=== PATIENT | female | born 1950 | race Caucasian/White ===

== ENCOUNTER → 2016-12-30 | Day surgery (SDC) | payer OTHER ==
[~2016-12-30] MED LIST: ALPR0.5T6 PO; ATEN100T PO; ESCI10TA PO; FENO134C PO; FENTANYL PF 100 MCG/2 ML VIAL. IV PRN; FLUT1DIS IH; HYDR12.53 PO; HYDR200T PO; HYDROMORPHONE 2 MG/ML VIAL. IV PRN; IV RINGERS,LACTATED 1000ML 1,000 ML IV SCH; LEVO25TA4 PO; LEVO5TAB20 PO; LIDOCAINE 1% 1 ML SYRINGE. ID PRN; LIDOCAINE 2% PF Vial for OR 5 ML VIAL. ONE; MELO-150 PO; MONT10TA6 PO; MORPHINE SULFATE 2 MG/ML DISP.SYRIN. IV PRN; OMEP20CA9 PO; POLY17PO5 PO; POT25TAB PO; PROCHLORPERAZINE 10 MG/2 ML VIAL. IV PRN; PROPOFOL 20 ML IV ONE; PSYL660P18 PO
[2016-12-30 08:31] VITALS: BP 143/55
--- NOTE | 2016-12-30 22:26 | CONS ---
DATE OF CONSULTATION: 12/30/2016 REFERRING: ALIVIA Jeter. HISTORY OF PRESENT ILLNESS: This is a 66-year-old female whose past medical history is significant for hyperlipidemia, hypothyroidism, gastroesophageal reflux disease, dysphagia, reactive airway, is seen with regurgitation, heartburn, dysphagia occurs in the sub-cervical location, mainly with pills and solids. Risk factors for reflux are positive for caffeine, but negative for nicotine and alcohol. She has been on acid suppressive therapy with omeprazole with modest improvement. Weight and appetite are stable. With continued issues, she is here today for possible dilatation. PAST MEDICAL HISTORY: Hypothyroidism, reflux, reactive airway disease, hyperlipidemia, and anxiety. ALLERGIES: PENICILLIN AND ASPIRIN. MEDICATIONS: Include Xanax, atenolol, citalopram, fenofibrate, Advair, hydrochlorothiazide, Plaquenil, levothyroxine, Meloxicam, Singulair, omeprazole, MiraLax, potassium and Metamucil. SOCIAL HISTORY: She is not a drinker or smoker. PAST SURGICAL HISTORY: Appendectomy, cholecystectomy, hysterectomy and tonsillectomy. FAMILY HISTORY: Significant for breast cancer with an aunt, colorectal cancer with a sibling. PHYSICAL EXAMINATION: GENERAL: Reveals a well-nourished, well-developed female. VITAL SIGNS: Temperature is 97.2, pulse is 94, respirations 20. HEENT: Normocephalic and atraumatic head. Pupils and extraocular movements not tested. Sclerae anicteric. NECK: Supple. LUNGS: Clear. CARDIOVASCULAR: Reveals an S1, S2 without S3, S4 or appreciable murmur. ABDOMEN: Reveals a soft abdomen, normal bowel sounds, without appreciable hepatosplenomegaly. EXTREMITIES: Reveals no cyanosis, clubbing or edema. IMPRESSION: Dysphagia with heartburn. Differential includes Schatzki's ring, malignancy, achalasia, eosinophilic esophagitis and/or Sánchez's. Risks and benefits of procedure including risk of perforation ____ operation have been discussed. The patient is willing to proceed at this time. I would like to thank Anny for allowing us to consult and participate in this patient's care. MOISES REEVES MD DR: KRISTINE/margoth JOB#: [id number] / [id number]
== END | disposition home or self-care (01) ==
LOC: ENDOS 05:58
PROVIDERS: ATTEND Internal Medicine Gastroenterology
DX: K22.2 Esophageal obstruction (principal); K44.9 Diaphragmatic hernia without obstruction or gangrene; E78.00 Pure hypercholesterolemia, unspecified; I10 Essential (primary) hypertension; J45.909 Unspecified asthma, uncomplicated; E66.9 Obesity, unspecified; E03.9 Hypothyroidism, unspecified; F41.9 Anxiety disorder, unspecified; F32.9 Major depressive disorder, single episode, unspecified; M19.90 Unspecified osteoarthritis, unspecified site; Z90.710 Acquired absence of both cervix and uterus; Z90.49 Acquired absence of other specified parts of digestive tract
CPT/HCPCS: 43235; 43450; J2704